=== PATIENT | male | born 1955 | race Caucasian/White ===

== ENCOUNTER 2022-03-08 09:50 | Inpatient (IN) | payer OTHER ==
[2022-03-08] VITALS (9 sets, daily range): BP systolic 115–153; BP diastolic 60–96
[~2022-03-08] VITALS: Ht 167.6 cm; Wt 56.8 kg
[2022-03-08] MEDS: normal saline 1000ml 1,000 ML IV SCH ×2 (08:00→18:40)
[2022-03-08] MEDS ORDERED: aspirin 81mg tab.chew PO ONE (10:15)
[2022-03-08] MEDS ORDERED: clopidogrel 300mg tablet PO ONE (10:15)
[2022-03-08 10:27] LABS: BASOPHILS % (AUTO) 0.5 % (0-1); EOSINOPHILS % (AUTO) 0.4 % (0-6); HEMATOCRIT 49.1 % (42.0-52.0); LYMPHOCYTES # (AUTO) 1.4 X10'3 (1.1-4.8); LYMPHOCYTES % (AUTO) 22.1 % (21-51); MEAN CORPUSCULAR HEMOGLOBIN 34.5 PG (27.0-31.0); MEAN CORPUSCULAR HGB CONC 34.7 g/dL (33.0-36.5); MEAN CORPUSCULAR VOLUME 99.3 FL (78-98); MEAN PLATELET VOLUME 7.2 FL (7.4-10.4); MONOCYTES # (AUTO) 0.8 X10'3 (0-0.9); PLATELET COUNT 247 X10'3 (140-440); RED BLOOD COUNT 4.94 X10'6 (4.70-6.10); RED CELL DISTRIBUTION WIDTH 13.1 % (11.5-14.5); WHITE BLOOD COUNT 6.2 X10'3 (4.5-11.0)
[2022-03-08 10:38] LABS: ALANINE AMINOTRANSFERASE 69 U/L (12-78); ALBUMIN 4.1 G/DL (3.4-5.0); ALBUMIN/GLOBULIN RATIO 1.1 (1.1-1.5); ALKALINE PHOSPHATASE 101 IU/L (46-116); ANION GAP 12 (8-16); ASPARTATE AMINO TRANSFERASE 77 U/L (10-37); BILIRUBIN,TOTAL 2.4 MG/DL (0.1-1.0); BLOOD UREA NITROGEN 7 MG/DL (7-18); BUN/CREATININE RATIO 8.2 (5.4-32.0); CALCIUM 9.3 MG/DL (8.5-10.1); CHLORIDE 97 MMOL/L (99-107); CREATININE 0.85 MG/DL (0.60-1.10); GLUCOSE 108 MG/DL (70-104); POTASSIUM 4.4 MMOL/L (3.5-5.1); SODIUM 134 MMOL/L (135-145); TOTAL CARBON DIOXIDE 25.4 MMOL/L (24-32); TOTAL PROTEIN 7.8 G/DL (6.4-8.2); eGFR 90 ML/MIN
[2022-03-08] MEDS ORDERED: clopidogrel 75mg tablet PO ONE (10:40)
[2022-03-08] MEDS ORDERED: NO HOME MEDS (10:47)
[2022-03-08 11:32] LABS: APTT 30 SECONDS (22-32)
[2022-03-08] MEDS ORDERED: magnesium 4gm in 100ml NS 100 ML IV PRN (13:45)
[2022-03-08] MEDS ORDERED: POTASSIUM BICARB 20meq eff tab 20 MEQ TABLET.EFF PO PRN ×2 (13:45)
[2022-03-08] MEDS ORDERED: magnesium 2GM in 50ml NS 50 ML IV PRN (13:45)
[2022-03-08] MEDS ORDERED: ondansetron/PF 4mg/2ml inj IV PRN (13:45)
[2022-03-08] MEDS ORDERED: magnesium hydroxide 30ml (MOM) UD suspension PO PRN (13:45)
[2022-03-08] MEDS ORDERED: potassium CL 10mEq/100ml bag 100 ML IV PRN (13:45)
[2022-03-08] MEDS ORDERED: magnesium Cl slow-release 64mg tablet PO PRN (13:45)
[2022-03-08] MEDS ORDERED: acetaminophen 325mg tablet PO PRN (13:45)
[2022-03-08] MEDS ORDERED: mag hydrox/Alum hydrox/simeth 30ml oral suspension PO PRN (13:45)
[2022-03-08] MEDS ORDERED: LIDOcaine 1% W/epiNEPHrine 1:100,000 20ml vial ONE ×2 (15:26→16:21)
[2022-03-08] MEDS ORDERED: ceFAZolin 1000mg inj ONE ×2 (15:26→16:12)
[2022-03-08] MEDS ORDERED: fentaNYL/PF 50MCG/1 ML 2ML syringe ONE (15:26)
[2022-03-08] MEDS ORDERED: midazolam 1 mg/ML 2ml injection ONE (15:26)
[2022-03-08 16:13] LABS: MAGNESIUM 1.8 MG/DL (1.5-2.4); POTASSIUM 4.5 MMOL/L (3.5-5.1)
[2022-03-08] MEDS ORDERED: ceFAZolin/dextrose, iso. 1 GM/50ml bag IV ONE (16:15)
[2022-03-08] MEDS ORDERED: proCHLORperazine 10 MG/2 ml inj ONE (16:24)
--- NOTE | 2022-03-08 18:00 | NUR ---
Patient in room PCU 3011. I have received report from ALO Vail and had the opportunity to ask questions and assume patient care.
--- NOTE | 2022-03-08 19:00 | NUR ---
Pt left pacemaker dressing became saturated with blood, notified charged RN and MD. Reenforce dressing and pressure bandage on site. Pt denies pain at this time and tolerated it well with out difficulty. Will continue to monitor.
[2022-03-08] MEDS ORDERED: folic acid 1mg/0.2ml inj IV SCH (19:25)
[2022-03-08] MEDS ORDERED: dextrose 50%-water 50ml dispensing syringe IV PRN (19:25)
[2022-03-08] MEDS ORDERED: haloperidol 5mg tablet PO PRN (19:25)
[2022-03-08] MEDS: K and/or MAG REPLACEMENT MC SCH (20:00)
[2022-03-08] MEDS: thiamine 100mg tablet PO SCH (20:15)
[2022-03-08] MEDS: folic acid 1mg tablet PO SCH (20:15)
[2022-03-08] MEDS: thiamine 100mg/ml 2ml inj. IV SCH (20:16)
[2022-03-08] MEDS: docusate sod 100mg capsule PO SCH (20:16)
[2022-03-08] MEDS: LORazepam 2 mg/ml vial IV PRN ×2 (20:19→22:26)
--- NOTE | 2022-03-08 23:12 | NUR ---
Pt became agitated at this time. ETOH withdrawals. Protocol was initiated per MD ordered. Ativan was given pt is now resting peacefully. Will continue to monitor.
[2022-03-09] VITALS (12 sets, daily range): BP systolic 96–135; BP diastolic 61–81
[2022-03-09] MEDS: LORazepam 2 mg/ml vial IV PRN ×6 (02:44→21:48)
[2022-03-09] MEDS: normal saline 1000ml 1,000 ML IV SCH (05:00)
[2022-03-09] MEDS: haloperidol lactate 5mg/ml inj IM PRN (06:47)
[2022-03-09 07:19] LABS: BASOPHILS % (AUTO) 0.2 % (0-1); EOSINOPHILS % (AUTO) 0.4 % (0-6); HEMATOCRIT 43.8 % (42.0-52.0); HEMOGLOBIN 14.6 g/dl (14.0-17.9); LYMPHOCYTES # (AUTO) 0.9 X10'3 (1.1-4.8); LYMPHOCYTES % (AUTO) 11.5 % (21-51); MEAN CORPUSCULAR HEMOGLOBIN 33.2 PG (27.0-31.0); MEAN CORPUSCULAR HGB CONC 33.3 g/dL (33.0-36.5); MEAN CORPUSCULAR VOLUME 99.5 FL (78-98); MEAN PLATELET VOLUME 7.3 FL (7.4-10.4); MONOCYTES # (AUTO) 1.1 X10'3 (0-0.9); MONOCYTES % (AUTO) 13.5 % (2-12); NEUTROPHILS % (AUTO) 74.4 % (42-75); PLATELET COUNT 188 X10'3 (140-440); RED CELL DISTRIBUTION WIDTH 13.1 % (11.5-14.5); WHITE BLOOD COUNT 8.1 X10'3 (4.5-11.0)
[2022-03-09 07:46] LABS: ALBUMIN 3.2 G/DL (3.4-5.0); ANION GAP 12 (8-16); BLOOD UREA NITROGEN 11 MG/DL (7-18); BUN/CREATININE RATIO 14.5 (5.4-32.0); CALCIUM 8.2 MG/DL (8.5-10.1); CHLORIDE 102 MMOL/L (99-107); CREATININE 0.76 MG/DL (0.60-1.10); GLUCOSE 104 MG/DL (70-104); MAGNESIUM 1.9 MG/DL (1.5-2.4); POTASSIUM 4.4 MMOL/L (3.5-5.1); SODIUM 137 MMOL/L (135-145); TOTAL CARBON DIOXIDE 23.5 MMOL/L (24-32); eGFR > 90 ML/MIN
[2022-03-09] MEDS: K and/or MAG REPLACEMENT MC SCH ×2 (08:00→19:05)
[2022-03-09] MEDS: docusate sod 100mg capsule PO SCH ×2 (08:04→20:00)
[2022-03-09] MEDS: thiamine 100mg tablet PO SCH (08:04)
[2022-03-09] MEDS: thiamine 100mg/ml 2ml inj. IV SCH ×3 (08:04→21:00)
[2022-03-09] MEDS: folic acid 1mg tablet PO SCH (08:04)
[2022-03-09] MEDS: enoxaparin 40mg/0.4ml syringe SUBCUT SCH (08:06)
[2022-03-09] MEDS: lisinopril 5mg tablet PO SCH (09:05)
[2022-03-09] MEDS: metoprolol succinate 25mg (24-HOUR) SR. Tablet PO SCH (09:05)
[2022-03-09] MEDS: ceFAZolin/D5W- 1GM premix 50 ML IV SCH ×3 (09:14→19:36)
[2022-03-09] MEDS: nicotine 14mg patch - 24hr TD SCH (10:48)
--- NOTE | 2022-03-09 12:14 | NUR ---
Malnutrition consult: Pt unsure of wt loss though reports decreased appetite per malnutrition risk screen with RN. Pt and son seen at bedside. Pt sleeping during initial arrival so most information was gathered by son. Pt reports a low appetite and states UBW is unknown. Per son patient's current wt and appearance has been stable for a couple of years though prior pt did experience some gradual wt loss from unknown etiology. Current scaled wt is appropriate for age. Pt appears thin though not cachectic. No documented edema per EMR. Pt currently lacks a minimum of two criteria for malnutrition. RD contact information provided and pt/son encouraged to reach out if needed. Pt denies food allergies or difficulty chewing or swallowing. Will continue to follow. Addendum: 03/09/22 at [address] Amended: Links added.
[2022-03-09] MEDS ORDERED: LIDOcaine 1%/PF 5ML 10 MG/ML VIAL ONE (14:29)
--- NOTE | 2022-03-10 00:25 | NUR ---
Pt. resting comfortably at this time. HR stable, no signs of distress.
[2022-03-10] MEDS: LORazepam 2 mg/ml vial IV PRN ×6 (01:45→23:40)
[2022-03-10 02:00] VITALS: BP 99/64
[2022-03-10 05:57] LABS: BASOPHILS % (AUTO) 0.3 % (0-1); EOSINOPHILS # (AUTO) 0.1 X10'3 (0-0.9); EOSINOPHILS % (AUTO) 1.4 % (0-6); HEMATOCRIT 38.5 % (42.0-52.0); HEMOGLOBIN 13.2 g/dl (14.0-17.9); LYMPHOCYTES # (AUTO) 0.9 X10'3 (1.1-4.8); LYMPHOCYTES % (AUTO) 18.2 % (21-51); MEAN CORPUSCULAR HEMOGLOBIN 34.1 PG (27.0-31.0); MEAN CORPUSCULAR HGB CONC 34.2 g/dL (33.0-36.5); MEAN CORPUSCULAR VOLUME 99.5 FL (78-98); MEAN PLATELET VOLUME 7.2 FL (7.4-10.4); MONOCYTES # (AUTO) 0.7 X10'3 (0-0.9); MONOCYTES % (AUTO) 13.4 % (2-12); NEUTROPHILS # (AUTO) 3.4 X10'3 (1.8-7.7); NEUTROPHILS % (AUTO) 66.7 % (42-75); PLATELET COUNT 171 X10'3 (140-440); RED BLOOD COUNT 3.87 X10'6 (4.70-6.10); RED CELL DISTRIBUTION WIDTH 13.2 % (11.5-14.5); WHITE BLOOD COUNT 5.2 X10'3 (4.5-11.0)
[2022-03-10 06:00] VITALS: BP 105/72
[2022-03-10 06:05] LABS: ALBUMIN 2.9 G/DL (3.4-5.0); ANION GAP 7 (8-16); BLOOD UREA NITROGEN 13 MG/DL (7-18); BUN/CREATININE RATIO 18.6 (5.4-32.0); CALCIUM 8.5 MG/DL (8.5-10.1); CHLORIDE 103 MMOL/L (99-107); GLUCOSE 96 MG/DL (70-104); MAGNESIUM 1.9 MG/DL (1.5-2.4); POTASSIUM 4.1 MMOL/L (3.5-5.1); SODIUM 136 MMOL/L (135-145); TOTAL CARBON DIOXIDE 26.4 MMOL/L (24-32); eGFR > 90 ML/MIN
[2022-03-10] MEDS: K and/or MAG REPLACEMENT MC SCH ×2 (08:00→18:51)
[2022-03-10] MEDS: folic acid 1mg tablet PO SCH (08:38)
[2022-03-10] MEDS: metoprolol succinate 25mg (24-HOUR) SR. Tablet PO SCH (08:38)
[2022-03-10] MEDS: thiamine 100mg tablet PO SCH (08:38)
[2022-03-10] MEDS: enoxaparin 40mg/0.4ml syringe SUBCUT SCH (08:38)
[2022-03-10] MEDS: docusate sod 100mg capsule PO SCH ×2 (08:39→20:33)
[2022-03-10] MEDS: lisinopril 5mg tablet PO SCH (08:40)
[2022-03-10] MEDS: nicotine 14mg patch - 24hr TD SCH (08:40)
[2022-03-10 11:00] VITALS: BP 120/72
[2022-03-10] MEDS: normal saline 1000ml 1,000 ML IV SCH (13:45)
[2022-03-10 15:00] VITALS: BP 117/84
[2022-03-10 18:00] VITALS: BP 114/75
[2022-03-10] MEDS: LORazepam 1 MG tablet PO PRN (20:34)
[2022-03-10 22:00] VITALS: BP 114/60
--- NOTE | 2022-03-11 00:16 | NUR ---
patient has become intermittently restless and confused, trying to get out of bed, tangling himself up with monitor, IV and chest tube lines. Tab alarm on, continue with comfort measures, reassure, reorient, and treat with atavan per order.
[2022-03-11 02:00] VITALS: BP 116/64
[2022-03-11] MEDS: LORazepam 2 mg/ml vial IV PRN (05:13)
[2022-03-11 06:00] VITALS: BP 145/87
[2022-03-11 06:23] LABS: BASOPHILS % (AUTO) 0.5 % (0-1); EOSINOPHILS # (AUTO) 0.1 X10'3 (0-0.9); EOSINOPHILS % (AUTO) 2.1 % (0-6); HEMATOCRIT 37.7 % (42.0-52.0); HEMOGLOBIN 12.9 g/dl (14.0-17.9); LYMPHOCYTES # (AUTO) 0.9 X10'3 (1.1-4.8); LYMPHOCYTES % (AUTO) 18.3 % (21-51); MEAN CORPUSCULAR HEMOGLOBIN 34.2 PG (27.0-31.0); MEAN CORPUSCULAR HGB CONC 34.3 g/dL (33.0-36.5); MEAN CORPUSCULAR VOLUME 99.7 FL (78-98); MEAN PLATELET VOLUME 7.1 FL (7.4-10.4); MONOCYTES # (AUTO) 0.6 X10'3 (0-0.9); MONOCYTES % (AUTO) 13.3 % (2-12); NEUTROPHILS # (AUTO) 3.2 X10'3 (1.8-7.7); NEUTROPHILS % (AUTO) 65.8 % (42-75); PLATELET COUNT 159 X10'3 (140-440); RED BLOOD COUNT 3.78 X10'6 (4.70-6.10); RED CELL DISTRIBUTION WIDTH 12.8 % (11.5-14.5); WHITE BLOOD COUNT 4.9 X10'3 (4.5-11.0)
[2022-03-11 06:28] LABS: ALBUMIN 2.8 G/DL (3.4-5.0); ANION GAP 4 (8-16); BLOOD UREA NITROGEN 9 MG/DL (7-18); BUN/CREATININE RATIO 14.3 (5.4-32.0); CHLORIDE 102 MMOL/L (99-107); CREATININE 0.63 MG/DL (0.60-1.10); GLUCOSE 88 MG/DL (70-104); MAGNESIUM 1.7 MG/DL (1.5-2.4); POTASSIUM 3.7 MMOL/L (3.5-5.1); SODIUM 132 MMOL/L (135-145); TOTAL CARBON DIOXIDE 26.2 MMOL/L (24-32); eGFR > 90 ML/MIN
[2022-03-11] MEDS: K and/or MAG REPLACEMENT MC SCH ×2 (08:00→20:00)
[2022-03-11] MEDS: thiamine 100mg tablet PO SCH (09:01)
[2022-03-11] MEDS: folic acid 1mg tablet PO SCH (09:01)
[2022-03-11] MEDS: lisinopril 5mg tablet PO SCH (09:02)
[2022-03-11] MEDS: docusate sod 100mg capsule PO SCH ×2 (09:02→22:00)
[2022-03-11] MEDS: metoprolol succinate 25mg (24-HOUR) SR. Tablet PO SCH (09:02)
[2022-03-11] MEDS: nicotine 14mg patch - 24hr TD SCH (09:02)
[2022-03-11] MEDS: enoxaparin 40mg/0.4ml syringe SUBCUT SCH (09:03)
[2022-03-11 11:00] VITALS: BP 151/62
[2022-03-11] MEDS: cephalexin 500mg capsule PO SCH ×2 (13:08→22:00)
[2022-03-11 15:00] VITALS: BP 113/65
--- NOTE | 2022-03-11 17:23 | NUR ---
Dr. Lewis in to DC chest tube. Family at bedside. Continue to monitor.
[2022-03-11 18:00] VITALS: BP 118/74
[2022-03-11 22:00] VITALS: BP 108/74
[2022-03-11] MEDS: LORazepam 1 MG tablet PO PRN (22:00)
[2022-03-12] MEDS: LORazepam 2 mg/ml vial IV PRN (00:48)
[2022-03-12] MEDS: haloperidol lactate 5mg/ml inj IM PRN (02:29)
--- NOTE | 2022-03-12 02:29 | NUR ---
Patient continues to be agitated and uncooperative after Ativan administration, would not tale PO Haldol, given IM Haldol as last resort.
[2022-03-12 06:00] VITALS: BP 96/50
[2022-03-12 06:28] LABS: BASOPHILS % (AUTO) 0.3 % (0-1); EOSINOPHILS # (AUTO) 0.1 X10'3 (0-0.9); EOSINOPHILS % (AUTO) 1.4 % (0-6); HEMATOCRIT 38.1 % (42.0-52.0); HEMOGLOBIN 12.9 g/dl (14.0-17.9); LYMPHOCYTES # (AUTO) 0.9 X10'3 (1.1-4.8); LYMPHOCYTES % (AUTO) 19.3 % (21-51); MEAN CORPUSCULAR HEMOGLOBIN 33.4 PG (27.0-31.0); MEAN CORPUSCULAR HGB CONC 33.8 g/dL (33.0-36.5); MEAN PLATELET VOLUME 7.2 FL (7.4-10.4); MONOCYTES # (AUTO) 0.6 X10'3 (0-0.9); MONOCYTES % (AUTO) 12.8 % (2-12); NEUTROPHILS # (AUTO) 3.2 X10'3 (1.8-7.7); NEUTROPHILS % (AUTO) 66.2 % (42-75); PLATELET COUNT 179 X10'3 (140-440); RED BLOOD COUNT 3.85 X10'6 (4.70-6.10); RED CELL DISTRIBUTION WIDTH 12.9 % (11.5-14.5); WHITE BLOOD COUNT 4.8 X10'3 (4.5-11.0)
[2022-03-12 06:33] LABS: ALBUMIN 2.9 G/DL (3.4-5.0); ANION GAP 6 (8-16); BLOOD UREA NITROGEN 10 MG/DL (7-18); BUN/CREATININE RATIO 18.2 (5.4-32.0); CALCIUM 8.2 MG/DL (8.5-10.1); CHLORIDE 105 MMOL/L (99-107); CREATININE 0.55 MG/DL (0.60-1.10); GLUCOSE 96 MG/DL (70-104); MAGNESIUM 1.7 MG/DL (1.5-2.4); POTASSIUM 3.4 MMOL/L (3.5-5.1); SODIUM 137 MMOL/L (135-145); TOTAL CARBON DIOXIDE 26.3 MMOL/L (24-32); eGFR > 90 ML/MIN
[2022-03-12] MEDS: metoprolol succinate 25mg (24-HOUR) SR. Tablet PO SCH (08:00)
[2022-03-12] MEDS: lisinopril 5mg tablet PO SCH (08:00)
[2022-03-12 09:00] VITALS: BP 118/68
[2022-03-12] MEDS: thiamine 100mg tablet PO SCH (09:01)
[2022-03-12] MEDS: enoxaparin 40mg/0.4ml syringe SUBCUT SCH (09:01)
[2022-03-12] MEDS: cephalexin 500mg capsule PO SCH (09:02)
[2022-03-12] MEDS: docusate sod 100mg capsule PO SCH (09:02)
[2022-03-12] MEDS: folic acid 1mg tablet PO SCH (09:02)
[2022-03-12] MEDS: nicotine 14mg patch - 24hr TD SCH (09:06)
--- NOTE | 2022-03-12 10:19 | NUR ---
Initial: Pt admit for third-degree heart block and heart failure with moderately reduced EF 35-40% per DIVING [employer]PER[employer]OR note. Pt s/p pacemaker placement 03/08 and with a pneumothorax s/p chest tube placement which is now resolved per MD note. Pt with EtOH hx, going through withdrawals per MD note. Pt receiving routine Thiamine and Folic acid. Pt initially NPO then on a clear liquid diet with poor PO intake, documented with mostly 0%, however up to average 75% PO intake of clear liquid diet since 03/10. Diet was advanced to heart healthy at lunch 03/11 and pt documented with 100% PO intake meeting estimated nutrient needs. LBM 03/10, receiving routine bowel care. No nutrition intervention implemented at this time. Will continue to follow. Recommendations: 1) Continue heart healthy diet 2) Continue routine Thiamine and Folic acid in view of EtOH hx with elevated MCV 3) Routine bowel care 4) Weekly scaled weights Addendum: 03/12/22 at [address] Amended: Links added.
[2022-03-12] MEDS ORDERED: CHLO25CA10 PO (10:42)
[2022-03-12] MEDS ORDERED: thiamine tablet PO (10:42)
[2022-03-12] MEDS ORDERED: LISI5TAB22 PO (10:42)
[2022-03-12] MEDS ORDERED: FOLI1TAB27 PO (10:42)
[2022-03-12] MEDS ORDERED: METO-395 PO (10:42)
[2022-03-12] MEDS ORDERED: CEPH-585 PO (10:42)
[2022-03-12] MEDS ORDERED: NICO-631 TD (10:42)
--- NOTE | 2022-03-12 11:45 | NUR ---
Patient discharged home with son. IV dc'd. Tele dcd. Pt son says they have the resources at home to help patient and will have family/sister with him at all times to help. Meds sent to pharmacy, all belongings taken from room.
[2022-03-12] MEDS ORDERED: LORazepam 2 mg/ml vial IV PRN (19:25)
[2022-03-12] MEDS ORDERED: LORazepam 1 MG tablet PO PRN (19:25)
== END 2022-03-12 11:53 | disposition home or self-care (01) | DRG 242 ==
LOC: ER 09:51 → ED HOLD 13:44 → PCU 3S 17:30
PROVIDERS: ADMIT Family Medicine; ATTEND Family Medicine
PROC: 0JH606Z Insertion of Pacemaker, Dual Chamber into Chest Subcutaneous Tissue and Fascia, Open Approach (ICD-10-PCS; principal; 2022-03-08)
PROC: 02HK3JZ Insertion of Pacemaker Lead into Right Ventricle, Percutaneous Approach (ICD-10-PCS; 2022-03-08)
PROC: 02H63JZ Insertion of Pacemaker Lead into Right Atrium, Percutaneous Approach (ICD-10-PCS; 2022-03-08)
PROC: 0W9B30Z Drainage of Left Pleural Cavity with Drainage Device, Percutaneous Approach (ICD-10-PCS; 2022-03-09)
DX: I44.2 Atrioventricular block, complete (principal); J96.01 Acute respiratory failure with hypoxia; I50.21 Acute systolic (congestive) heart failure; F10.239 Alcohol dependence with withdrawal, unspecified; I20.0 Unstable angina; J93.9 Pneumothorax, unspecified; F17.210 Nicotine dependence, cigarettes, uncomplicated; J44.9 Chronic obstructive pulmonary disease, unspecified; Z80.0 Family history of malignant neoplasm of digestive organs; Z71.6 Tobacco abuse counseling; Z71.41 Alcohol abuse counseling and surveillance of alcoholic
CPT/HCPCS: 32557; 33208; 36415; 71045; 80048; 80053; 83735; 83880; 84132; 84484; 85025; 85610; 85730; 87081; 93005; 93306; 97116; 97161; 97530; 99152; 99153; 99291; A4565; A6258; G0378; J0690; J0780; J1630; J1650; J2060; J2250; J3010; J3411; J3490; J7030

== ENCOUNTER 2023-06-10 20:45 | Emergency (ER) | payer BC, MEDICAID, OTHER ==
[~2023-06-10] VITALS: Ht 167.6 cm; Wt 56.8 kg
[~2023-06-10 20:45] MED LIST: CEPH-585 PO; CHLO25CA10 PO; FOLI1TAB27 PO; LISI5TAB22 PO; METO-395 PO; NICO-631 TD; thiamine tablet PO
[2023-06-10 21:16] VITALS: TEMP 97.7
[2023-06-10 21:21] LABS: BASOPHILS % (AUTO) 0.5 % (0-1); EOSINOPHILS # (AUTO) 0.1 X10'3 (0-0.9); EOSINOPHILS % (AUTO) 1.5 % (0-6); HEMATOCRIT 40.8 % (42.0-52.0); HEMOGLOBIN 13.8 g/dl (14.0-17.9); LYMPHOCYTES # (AUTO) 1.9 X10'3 (1.1-4.8); MEAN CORPUSCULAR HGB CONC 33.9 g/dL (33.0-36.5); MEAN CORPUSCULAR VOLUME 94.6 FL (78-98); MONOCYTES # (AUTO) 0.6 X10'3 (0-0.9); MONOCYTES % (AUTO) 9.6 % (2-12); NEUTROPHILS % (AUTO) 59.4 % (42-75); PLATELET COUNT 196 X10'3 (140-440); RED BLOOD COUNT 4.32 X10'6 (4.70-6.10); RED CELL DISTRIBUTION WIDTH 13.9 % (11.5-14.5); WHITE BLOOD COUNT 6.7 X10'3 (4.5-11.0)
[2023-06-10 21:27] LABS: ALANINE AMINOTRANSFERASE 12 U/L (12-78); ALBUMIN 3.7 G/DL (3.4-5.0); ALBUMIN/GLOBULIN RATIO 1.3 (1.1-1.5); ALKALINE PHOSPHATASE 79 IU/L (46-116); ANION GAP 7 (8-16); ASPARTATE AMINO TRANSFERASE 19 U/L (10-37); BILIRUBIN,TOTAL 0.9 MG/DL (0.1-1.0); BLOOD UREA NITROGEN 20 MG/DL (7-18); BUN/CREATININE RATIO 17.7 (10.0-20.0); CALCIUM 8.8 MG/DL (8.5-10.1); CHLORIDE 106 MMOL/L (99-107); CREATININE 1.13 MG/DL (0.60-1.10); GLUCOSE 105 MG/DL (70-104); POTASSIUM 4.1 MMOL/L (3.5-5.1); SODIUM 140 MMOL/L (135-145); TOTAL CARBON DIOXIDE 26.6 MMOL/L (24-32); TOTAL PROTEIN 6.6 G/DL (6.4-8.2); eCRCL 51 ML/MIN; eGFR 65 ML/MIN
[2023-06-10 21:35] LABS: PRO BRAIN NATRIURETIC PEPTIDE 1557 PG/ML (0-125)
[2023-06-11 05:34] VITALS: BP 96/63; PULSE 74; RESP 16; O2SAT 100
== END 2023-06-11 05:36 | disposition home or self-care (01) ==
LOC: ER 20:46
DX: R05.9 Cough, unspecified (principal); R06.02 Shortness of breath; I11.0 Hypertensive heart disease with heart failure; I50.9 Heart failure, unspecified; J44.9 Chronic obstructive pulmonary disease, unspecified; Z87.891 Personal history of nicotine dependence; Z95.0 Presence of cardiac pacemaker; Z79.2 Long term (current) use of antibiotics; Z79.899 Other long term (current) drug therapy; Z09 Encounter for follow-up examination after completed treatment for conditions other than malignant neoplasm
CPT/HCPCS: 36415; 71045; 80053; 83880; 84484; 85025; 93005; 99285

== ENCOUNTER 2024-07-17 10:00 | Emergency (ER) | payer BC ==
[~2024-07-17] VITALS: Ht 170.2 cm; Wt 54.0 kg
[2024-07-17] MEDS: nitroGLYCERIN 0.4mg SUBLingual tab SL PRN (10:55)
[2024-07-17 11:25] VITALS: BP 134/87; PULSE 63; RESP 16; TEMP 97.6; O2SAT 99
== END 2024-07-17 11:30 | disposition home or self-care (01) ==
LOC: ER 10:00
DX: Z00.00 Encounter for general adult medical examination without abnormal findings (principal); I11.0 Hypertensive heart disease with heart failure; I50.9 Heart failure, unspecified; J44.9 Chronic obstructive pulmonary disease, unspecified; Z95.0 Presence of cardiac pacemaker; Z72.89 Other problems related to lifestyle; Z79.899 Other long term (current) drug therapy; Z79.2 Long term (current) use of antibiotics
CPT/HCPCS: 99283